=== PATIENT | female | born 1950 | race Caucasian/White ===

== ENCOUNTER 2016-10-19 05:44 | Emergency (ER) | payer MEDICARE, OTHER ==
[~2016-10-19] VITALS: Ht 167.6 cm; Wt 71.5 kg
[~2016-10-19 05:44] MED LIST: AMLO-147 PO; BUPR300T36 PO; CHOL100062 PO; DOCU100C26 PO; ESCI20TA PO; GABA-526 PO; HYDR-3011 PO; KLO5 PO; LOSA25TA5 PO; OMEP20CA16 PO; PRAV40TA76 PO; QUET25TA26 PO
[2016-10-19 05:49] VITALS: Ht 167.6 cm; Wt 71.5 kg
[2016-10-19] MEDS ORDERED: ALBUTEROL 0.5% (NEB) 2.5 MG/0.5 ML AMP INH STA ×2 (06:48→08:52)
[2016-10-19] MEDS ORDERED: IPRATROPIUM (NEB) 0.5 MG/2.5 ML AMP INH STA (06:48)
[2016-10-19] MEDS ORDERED: predniSONE 20 MG TAB PO ONE (07:00)
--- NOTE | 2016-10-19 07:14 | RADRPT ---
PROCEDURE: Chest Radiograph. CLINICAL INDICATION: Cough TECHNIQUE: Single frontal chest radiograph. COMPARISON: Chest radiograph 07/11/2016 FINDINGS: Heart size is within normal limits. Atherosclerotic calcifications are present. There is a calcifi ed granuloma in the left mid lung zone which is stable. The lungs may be mildly hyperinflated. No i nfiltrate or effusion is seen. The bones are intact. IMPRESSION: 1. No evidence of acute cardiopulmonary disease. 2. Atherosclerotic vascular disease. 3. Old granulomatous disease. 4. Mild pulmonary hyperinflation. RPTAT: AA .Mario Gilman MD, MD Date Time Electronically viewed and signed by .Mario Gilman MD, MD on 10/19/2016 07:14 .B/
--- NOTE | 2016-10-19 09:29 | RADRPT ---
AMENDMENT: 10/19/2016 10:25:16 AM Arian Santoro M.D Correction: The study was a bilateral shoulder study not solely a left shoulder study. The correct report should read as follows: Left side: PROCEDURE: XR left Shoulder. CLINICAL INDICATION: Fall. Left shoulder pain from a fall on 10/07/2016. TECHNIQUE: 3 views of the left shoulder are available for review. COMPARISON: 07/11/2016 FINDINGS: The humeral head is elevated and there has been a decrease since the prior exam. There is a mild de crease in the acromiohumeral distance and the findings are suggestive of a rotator cuff rupture. MRI would be confirmatory if clinically indicated. There is chronic greater tuberosity enthesopathy. The bones are osteoporotic. The acromion is curved. No acute fractures seen. There is moderate ar throsis of the AC joint. IMPRESSION: 1. Probable rotator cuff tear. There has been a decrease in the acromiohumeral distance. 2. No acute fracture identified. 3. Osteoporosis. 4. Chronic enthesopathy and a curved acromion likely representing impingement. Right side: PROCEDURE: XR right Shoulder. CLINICAL INDICATION: Fall. Right shoulder pain from a fall on 10/07/2016. TECHNIQUE: 3 views of the right shoulder are available for review. COMPARISON: None available. FINDINGS: There is preservation of the coracohumeral distance. There is a curved acromion. There is chronic enthesopathy of the greater tuberosity. There is no evidence for fracture. The bones are osteopeni c. No evidence for bone destructive or erosive change. No evidence for rib fracture. IMPRESSION: 1. Chronic greater tuberosity enthesopathy and a curved acromion suggesting impingement. 2. No evidence for fracture. 3. Osteopenia. RPTAT: XX PROCEDURE: XR left Shoulder. CLINICAL INDICATION: Fall. Left shoulder pain. TECHNIQUE: 6 views of the left shoulder are available for review. COMPARISON: 07/11/2016 FINDINGS: The humeral head is elevated and there has been a decrease since the prior exam. There is a mild de crease in the acromiohumeral distance and the findings are suggestive of a rotator cuff rupture. Th ere is chronic greater tuberosity enthesopathy. The bones are osteoporotic. The acromion is curved . No acute fractures seen. There is moderate arthrosis of the AC joint. IMPRESSION: 1. Probable rotator cuff tear. There has been a decrease in the acromiohumeral distance. 2. No acute fracture identified. 3. Osteoporosis. 4. Chronic enthesopathy and a curved acromion likely representing impingement. RPTAT: XX .Arian Santoro MD, Date Time Electronically viewed and signed by .Arian Santoro MD, on 10/19/2016 10:25 .T/
[2016-10-19] MEDS ORDERED: ALBU8.5H3 INH (10:48)
[2016-10-19] MEDS ORDERED: OSEL30CA PO (10:48)
[2016-10-19] MEDS ORDERED: MED4DP PO (10:48)
[2016-10-19] MEDS ORDERED: ACET1TAB40 PO (10:48)
--- NOTE | 2016-10-19 11:11 | ERD ---
ER Documentation Chief Complaint Date/Time DATE: 10/19/16 TIME: 11:00 Chief Complaint cough, colds x 10 days HPI 66-year-old female brought in by ambulance with a PMH of T-cell lymphoma, asthma , renal insufficiency complaining of a productive cough that started 4 days ago. States that she started to have a productive cough that started 10 days ago. Reports that she has yellowish thick phlegm. States that she has taken Robitussin and Zithromax without relief of her symptoms prescribed by her PCP. Reports that she also has bilateral shoulder pain. States that this probably occurred after a mechanical fall on October 07, 2016. States that she was seen at [place] and obtained a CT of the brain without contrast for her head injury which was negative for any acute neurological deficits or intracranial bleed. Denies any current headache, nausea, vomiting, abdominal pain, chest pain, shortness, weakness, dizziness, numbness or tingling, dyspnea on exertion, orthopnea. ROS All systems reviewed and are negative except as per history of present illness. Medications Home Meds Active Scripts Oseltamivir Phosphate* (Tamiflu*) 30 Mg Capsule, 30 MG PO BID for 5 Days, CAP Prov:[facility] PINEDA PA-C 10/19/16 Methylprednisolone* (Medrol* DOSE PACK) 4 Mg/Dose-Pack Tab.ds.pk, 4 MG PO . DIRECTED, #1 PACKET Prov:[facility] PINEDA PA-C 10/19/16 Albuterol Sulfate* (Proair HFA*) 8.5 Gm Hfa.aer.ad, 2 PUFF INH Q4, #1 INHALER Prov:[facility] PINEDA PA-C 10/19/16 Acetaminophen with Codeine (Acetaminophen-Cod #3 Tablet) 1 Each Tablet, 1 TAB PO Q6H Y for PAIN, #12 TAB Prov:[facility] PINEDA PA-C 10/19/16 Reported Medications Quetiapine Fumarate* (Seroquel*) 25 Mg Tablet, 25 MG PO DAILY, #30 TAB 07/11/16 Escitalopram Oxalate* (Lexapro*) 20 Mg Tablet, 20 MG PO DAILY, #30 TAB 07/11/16 Bupropion Hcl* (Bupropion XL*) 300 Mg Tab.sr.24h, 300 MG PO DAILY, TAB.SA 07/11/16 Cholecalciferol* (Vitamin D3*) 1,000 Unit Tablet, 2000 UNIT PO DAILY, TAB 07/11/16 Pravastatin Sodium* (Pravastatin Sodium*) 40 Mg Tablet, 40 MG PO HS, TAB 07/11/16 Docusate Sodium* (Doc-Q-Lace*) 100 Mg Capsule, 100 MG PO BID Y for CONSTIPATION , CAP 07/11/16 Omeprazole* (Omeprazole*) 20 Mg Capsule.dr, 20 MG PO DAILY, #30 CAP 07/11/16 Hydroxyzine Hcl* (Hydroxyzine Hcl*) 25 Mg Tablet, 25 MG PO QHS Y for ITCHING, # 30 TAB 07/11/16 Gabapentin* (Gabapentin*) 600 Mg Tablet, 600 MG PO BID, #60 TAB 07/11/16 Clonazepam* (Klonopin*) 0.5 Mg Tab, 0.5 MG PO BID, TAB 07/11/16 Losartan Potassium* (Losartan Potassium*) 25 Mg Tablet, 25 MG PO DAILY, TAB 07/11/16 Amlodipine Besylate* (Amlodipine Besylate*) 10 Mg Tablet, 10 MG PO DAILY, #30 TAB 07/11/16 Allergies Allergies: Coded Allergies: Penicillins (Verified Allergy, Unknown, 07/15/16) clindamycin (Verified Allergy, Unknown, 07/15/16) PMhx/Soc History of Surgery: Yes (nephrectomy,, radiation) Anesthesia Reaction: No Hx Neurological Disorder: No Hx Respiratory Disorders: Yes Hx Cardiac Disorders: Yes Hx Psychiatric Problems: Yes Hx Miscellaneous Medical Probl: Yes (T-cell lymphoma, kidney removal, HTN, asthma, herniated disk, legally blind) Hx Alcohol Use: No Hx Substance Use: No Hx Tobacco Use: No Smoking Status: Never smoker Physical Exam Vitals Vital Signs Date Time Temp Pulse Resp B/P Pulse Ox O2 Delivery O2 Flow Rate FiO2 10/19/16 12:41 98.1 89 19 115/59 98 Room Air 10/19/16 07:24 72 20 97 10/19/16 05:49 97.5 82 20 141/71 99 Physical Exam Const: Xrd-dru-gmputjsis, well-nourished. In no acute distress. Head: Atraumatic, normocephalic Eyes: Normal Conjunctiva without injection. No purulent discharge. PERRL. EOMI ENT: Normal external ear. Ear canal without erythema. Tympanic membrane pearly vaughn without effusion or bulging. Nasal canal clear with normal turbinates. Moist oropharynx without tonsillar exudates. Non-erythematous pharynx. Uvula midline. No drooling. No trismus. Neck: Full range of motion. No meningismus. No cervical lymphadenopathy. Resp: Bilateral expiratory wheezing noted. No rhonchi, rales, or crackles. No accessory muscle use. No retractions. Cardio: Regular rate and rhythm. No murmurs, rubs or gallops. Abd: Soft, non tender, non distended. Normal bowel sounds. No palpable masses. No rebound tenderness. No guarding. Skin: No petechiae or rashes Back: No midline tenderness. No CVA tenderness. Ext: No cyanosis, or edema. Neur: Awake and alert. Psych: Normal Mood and Affect Results 24 hrs Current Medications Medications (Trade) Dose Ordered Sig/Dipika Route PRN Reason Start Time Stop Time Status Last Admin Dose Admin Prednisone (Prednisone) 40 mg ONCE ONCE PO 10/19/16 07:00 10/19/16 07:01 DC 10/19/16 06:54 Albuterol (Proventil 0.5% (Neb)) 5 mg ONCE STAT INH 10/19/16 06:48 10/19/16 06:50 DC 10/19/16 07:23 Ipratropium [place] (Atrovent 0.02% (Neb)) 1 mg ONCE STAT INH 10/19/16 06:48 10/19/16 06:50 DC 10/19/16 07:23 Albuterol (Proventil 0.5% (Neb)) 10 mg ONCE STAT INH 10/19/16 08:52 10/19/16 08:56 DC 10/19/16 09:26 Procedures/MDM 66-year-old female with a past medical history of T-cell lymphoma, asthma, renal insufficiency presents the ED complaining of a productive cough that started 10 days ago. Patient is afebrile and nontoxic-appearing. Patient has normal vital signs. A chest x-ray was ordered to further evaluate patient. 2 breathing treatments were given to patient consisting of 5 mg albuterol, 10 mg albuterol, 1 mg Atrovent which improved patient's shortness of breath and breathing. Patient still has some slight wheezing noted bilaterally after she was reevaluated. Patient is speaking full sentences. Patient does not appear in any respiratory distress. Patient has normal pulse oximetry. PROCEDURE: Chest Radiograph. CLINICAL INDICATION: Cough TECHNIQUE: Single frontal chest radiograph. COMPARISON: Chest radiograph 07/11/2016 FINDINGS: Heart size is within normal limits. Atherosclerotic calcifications are present. There is a calcified granuloma in the left mid lung zone which is stable. The lungs may be mildly hyperinflated. No infiltrate or effusion is seen. The bones are intact. IMPRESSION: 1. No evidence of acute cardiopulmonary disease. 2. Atherosclerotic vascular disease. 3. Old granulomatous disease. 4. Mild pulmonary hyperinflation. AMENDMENT: 10/19/2016 10:25:16 AM Arian Santoro M.D Correction: The study was a bilateral shoulder study not solely a left shoulder study. The correct report should read as follows: Left side: PROCEDURE: XR left Shoulder. CLINICAL INDICATION: Fall. Left shoulder pain from a fall on 10/07/2016. TECHNIQUE: 3 views of the left shoulder are available for review. COMPARISON: 07/11/2016 FINDINGS: The humeral head is elevated and there has been a decrease since the prior exam. There is a mild decrease in the acromiohumeral distance and the findings are suggestive of a rotator cuff rupture. MRI would be confirmatory if clinically indicated. There is chronic greater tuberosity enthesopathy. The bones are osteoporotic. The acromion is curved. No acute fractures seen. There is moderate arthrosis of the AC joint. IMPRESSION: 1. Probable rotator cuff tear. There has been a decrease in the acromiohumeral distance. 2. No acute fracture identified. 3. Osteoporosis. 4. Chronic enthesopathy and a curved acromion likely representing impingement. Right side: PROCEDURE: XR right Shoulder. CLINICAL INDICATION: Fall. Right shoulder pain from a fall on 10/07/2016. TECHNIQUE: 3 views of the right shoulder are available for review. COMPARISON: None available. FINDINGS: There is preservation of the coracohumeral distance. There is a curved acromion. There is chronic enthesopathy of the greater tuberosity. There is no evidence for fracture. The bones are osteopenic. No evidence for bone destructive or erosive change. No evidence for rib fracture. IMPRESSION: 1. Chronic greater tuberosity enthesopathy and a curved acromion suggesting impingement. 2. No evidence for fracture. 3. Osteopenia. EKG reviewed and interpreted by Dr. Metz Rate/Rhythm: [79bpm, Normal Sinus Rhythm] No ectopy, no ST elevations, normal axis. QRS, ST, T-waves: [No changes consistent w/ acute ischemia] Impression: [No evidence of ischemia or arrhythmia] Patient has a left rotator cuff tear. I strictly instructed patient to follow- up with an orthopedic physician for further care and treatment. This could likely be due to patient's medical fall on October 07, 2016. Low suspicion for frozen shoulder, acute myocardial infarction, pneumothorax, pneumonia, cardiac tamponade, pulmonary embolism, AAA, aortic dissection, Boerhaave's syndrome, cardiac dysrhythmias,meningitis, intracranial bleed, seizure, stroke, TIA or other emergent conditions. Patient is placed in a left shoulder sling. Splint Assessment: Neurovascularly intact pre and post sling placement with good fit. Patient's extremity symptoms have stabilized while they have been evaluated in the department and are appropriate for outpatient follow up. No evidence of fractures, dislocations, compartment syndrome, neurologic injury, vascular injury, open joint, open fracture, tendon laceration, septic arthritis, osteomyelitis, DVT, foreign body, or other emergent conditions. I spoke with Elham, pharmacist here at [facility] and dosed Tamiflu based on patient's renal insufficiency. I spoke with Dr. Metz, my supervising physician who agreed with the management and discharge plan. Discharge medications: Tylenol 3, Medrol Dosepak, Tamiflu, Albuterol Follow up with primary care physician in 1-2 days. Instructed patient to return to the ED sooner for any worsening symptoms. Patient's questions were answered. Patient understood and agreed with discharge plan. Patient discharged stable. Departure Diagnosis: Primary Impression: URI (upper respiratory infection) URI type: unspecified URI Qualified Code: J06.9 - Upper respiratory tract infection, unspecified type Additional Impressions: Asthma exacerbation Rotator cuff tear Rotator cuff tear extent: unspecified tear extent Laterality: left Qualified Code: M75.102 - Tear of left rotator cuff, unspecified tear extent Condition: Stable Patient Instructions: Asthma, Acute (Adult), Rotator Cuff Tear, Uri, Viral W/ Wheezing (Adult) Referrals: COMMUNITY CLINICS YOU HAVE RECEIVED A MEDICAL SCREENING EXAM AND THE RESULTS INDICATE THAT YOU DO NOT HAVE A CONDITION THAT REQUIRES URGENT TREATMENT IN THE EMERGENCY DEPARTMENT. FURTHER EVALUATION AND TREATMENT OF YOUR CONDITION CAN WAIT UNTIL YOU ARE SEEN IN YOUR DOCTORS OFFICE WITHIN THE NEXT 1-2 DAYS. IT IS YOUR RESPONSIBILITY TO MAKE AN APPOINTMENT FOR FOLOW-UP CARE. IF YOU HAVE A PRIMARY DOCTOR --you should call your primary doctor and schedule an appointment IF YOU DO NOT HAVE A PRIMARY DOCTOR YOU CAN CALL OUR PHYSICIAN REFERRAL HOTLINE AT IF YOU CAN NOT AFFORD TO SEE A PHYSICIAN YOU CAN CHOSE FROM THE FOLLOWING [facility] [address] [facility] [address] [facility] [address] [facility] [address] [facility] [address] [facility]. [facility] [address] [facility] [facility] YOU HAVE RECEIVED A MEDICAL SCREENING EXAM AND THE RESULTS INDICATE THAT YOU DO NOT HAVE A CONDITION THAT REQUIRES URGENT TREATMENT IN THE EMERGENCY DEPARTMENT. FURTHER EVALUATION AND TREATMENT OF YOUR CONDITION CAN WAIT UNTIL YOU ARE SEEN IN YOUR DOCTORS OFFICE WITHIN THE NEXT 1-2 DAYS. IT IS YOUR RESPONSIBILITY TO MAKE AN APPOINTMENT FOR FOLOW-UP CARE. IF YOU HAVE A PRIMARY DOCTOR --you should call your primary doctor and schedule and appointment IF YOU DO NOT HAVE A PRIMARY DOCTOR YOU CAN CALL OUR PHYSICIAN REFERRAL HOTLINE AT . IF YOU CAN NOT AFFORD TO SEE A PHYSICIAN YOU CAN CHOSE FROM THE FOLLOWING [facility] INSTITUTIONS: [facility] [address] [place] [address] [facility] [address] [place] [address] [facility] [address] [place] [address] [facility] Urgent Care 7 a.m.- 11 p.m. Every Day of the Week NO APPOINTMENT OR AUTHORIZATION NEEDED SO [facility] Hours: Mon-Fri 9:00 AM - 5:00 PM Additional Instructions: FOLLOW UP WITH YOUR PRIMARY CARE PHYSICIAN TOMORROW for your asthma and for a referral for an orthopedic physician follow up for your rotator cuff tear . Return to this facility if you are not improving as expected. MC PINEDA PA-C Oct 19, 2016 11:11
[2016-10-19 12:41] VITALS: BP 115/59; PULSE 89; RESP 19; TEMP 98.1
== END 2016-10-19 12:45 | disposition home or self-care (01) ==
LOC: FTE 05:44
DX: J06.9 Acute upper respiratory infection, unspecified (principal); J45.901 Unspecified asthma with (acute) exacerbation; M75.102 Unspecified rotator cuff tear or rupture of left shoulder, not specified as traumatic; I10 Essential (primary) hypertension
CPT/HCPCS: 71010; 73030; 93005; 94644; 94645; 99284; J7512

== ENCOUNTER 2017-01-09 12:30 | Emergency (ER) | payer MEDICARE, OTHER ==
[~2017-01-09] VITALS: Ht 177.8 cm; Wt 68.2 kg
[~2017-01-09 12:30] MED LIST changes: +ACET1TAB40 PO; +ALBU8.5H3 INH; +CLON-429 PO; -KLO5 PO; +MED4DP PO; +OSEL30CA PO
[2017-01-09 12:33] VITALS: Ht 177.8 cm; Wt 68.2 kg
[2017-01-09] MEDS ORDERED: SOD CHLORIDE 0.9% 500 ML IV STA (17:02)
[2017-01-09] MEDS ORDERED: KETOROLAC 30 MG INJ IV STA (17:02)
[2017-01-09] MEDS ORDERED: QUET25TA26 PO (17:07)
[2017-01-09] MEDS ORDERED: ARIP10TA13 PO (17:08)
--- NOTE | 2017-01-09 17:51 | RADRPT ---
PROCEDURE: XR Chest. CLINICAL INDICATION: Abdomen pain. TECHNIQUE: Single frontal view. COMPARISON: 10/19/2016. FINDINGS: There is a benign calcified granuloma in the left midlung zone laterally. The lungs are otherwise c lear. The heart size is normal. There is calcification in the aorta consistent with atherosclerosis. There is no pleural effusion. There is no pneumothorax. IMPRESSION: 1. Calcified granuloma in the left midlung zone laterally. 2. Otherwise clear lungs. 3. Atherosclerosis. RPTAT: QQ .Blaine Alfred MD, MD Date Time Electronically viewed and signed by .Blaine Alfred MD, MD on 01/09/2017 17:51 .R/
[2017-01-09] MEDS ORDERED: morphine 4 MG/ML VIAL IV STA (17:58)
[2017-01-09 18:15] LABS: ADD SCAN DIFF NO
[2017-01-09 18:18] LABS: BASOPHIL # 0.1 10^3/ul (0.0-0.1); BASOPHILS % 0.9 % (0.0-2.0); EOSINOPHILS # 0.4 10^3/ul (0.0-0.5); EOSINOPHILS % 5.1 % (0.0-7.0); HEMATOCRIT 38.1 % (37.0-47.0); HEMOGLOBIN 12.6 g/dl (12.0-16.0); LYMPHOCYTES # 2.1 10^3/ul (0.8-2.9); LYMPHOCYTES % 25.5 % (15.0-51.0); MEAN CORPUSCULAR HEMOGLOBIN 28.4 pg (29.0-33.0); MEAN CORPUSCULAR HGB CONC 33.1 g/dl (32.0-37.0); MEAN CORPUSCULAR VOLUME 85.8 fl (82.0-101.0); MEAN PLATELET VOLUME 10.4 fl (7.4-10.4); MONOCYTE # 0.6 10^3/ul (0.3-0.9); MONOCYTES % 7.6 % (0.0-11.0); NEUTROPHIL # 4.9 10^3/ul (1.6-7.5); NEUTROPHILS % 59.9 % (39.0-77.0); PLATELET COUNT 393 10^3/UL (140-415); RED BLOOD COUNT 4.44 10^6/ul (4.20-5.40); RED CELL DISTRIBUTION WIDTH 13.3 % (11.5-14.5); WHITE BLOOD COUNT 8.2 10^3/ul (4.8-10.8)
[2017-01-09 18:23] LABS: URINE BILIRUBIN (Dip) NEGATIVE (NEGATIVE); URINE BLOOD (Dip) NEGATIVE (NEGATIVE); URINE COLOR LT. YELLOW (YELLOW); URINE GLUCOSE (Dip) NEGATIVE (NEGATIVE); URINE KETONES (Dip) NEGATIVE (NEGATIVE); URINE LEUKOCYTE ESTERASE (Dip) NEGATIVE (NEGATIVE); URINE NITRITE (Dip) NEGATIVE (NEGATIVE); URINE UROBILINOGEN (Dip) 0.2 E.U./dL (0.1-1.0)
[2017-01-09 18:27] LABS: POTASSIUM 3.9 mmol/L (3.5-5.1)
[2017-01-09 18:30] LABS: CREATININE 1.62 mg/dl (0.44-1.00)
[2017-01-09 18:31] LABS: CALCIUM 9.3 mg/dl (8.4-10.2)
[2017-01-09 18:45] LABS: ADD UMIC NO; URINE TOTAL PROTEIN (Dip) NEGATIVE (NEGATIVE)
--- NOTE | 2017-01-09 19:08 | RADRPT ---
PROCEDURE: CT Neck with contrast. CLINICAL INDICATION: 66-year-old female with cervical spine pain, suspected deep space infection. TECHNIQUE: The study was performed utilizing a multislice multidetector CT scanner. Direct spiral 1 mm axial sections were obtained through the neck with the use of with the use of intravenous contr ast material. 100 cc of Omnipaque 300 was utilized. Coronal and sagittal as well as maximal intens ity projection reformations were obtained. The images were reviewed on a PACS workstation. RADIATION DOSE: CTDIvol: 19.7 mGyDLP: 448.9 mGy-cm COMPARISON: No prior studies are available for comparison. FINDINGS: The nasopharynx, oropharynx and hypopharynx are normal in appearance. There is no prevertebral soft tissue swelling. There is no evidence of significant pharyngeal or parapharyngeal edema. There is no tongue base mass. The larynx is normal in appearance. The parotid, submandibular and thyroid g lands are normal in appearance. There are multiple small lymph nodes in the bilateral cervical teo n without evidence of enlarged cervical lymph node. The vascular structures are normal. The parana karon sinuses and orbits are normal. Limited visualization of the intracranial contents is unremarkab le. There are moderate to severe degenerative changes of the cervical spine. The lung apices are n ormal in appearance. IMPRESSION: 1. Multiple small lymph nodes in the bilateral cervical chains without evidence of lymphadenopathy. 2. Otherwise, unremarkable CT of the neck soft tissues. No mass lesion, lymphadenopathy or abnorma l fluid collection. No evidence of prevertebral fluid collection to suggest retropharyngeal abscess. RPTAT: HGAS .Braden Conrad MD, Date Time Electronically viewed and signed by .Braden Conrad MD, on 01/09/2017 19:08 .S/
--- NOTE | 2017-01-09 21:09 | ERD ---
ER Documentation Chief Complaint Date/Time DATE: 01/09/17 TIME: 21:02 Chief Complaint neck swelling hx of lymphode CA HPI 66-year-old female with a history of cutaneous T-cell lymphoma undergoing radiation treatment presenting with anterior neck pain and sore throat for about 1 week. She saw her primary care doctor a few days ago and she was diagnosed with likely a viral pharyngitis. She was given a prescription for lidocaine to take orally, however she did not fill it until today. She states that she had a runny nose associated with her symptoms and the fever initially, which have now resolved. She is concerned as she has this diagnosis of lymphoma and is worried that she has something serious going on. She has some pain with swallowing but denies any difficulty eating, drinking, speaking. No nausea, vomiting, chest pain, shortness of breath. She does have a mild cough with no phlegm production. ROS All systems reviewed and are negative except as per history of present illness. Medications Home Meds Active Scripts Albuterol Sulfate* (Proair HFA*) 8.5 Gm Hfa.aer.ad, 2 PUFF INH Q4, #1 INHALER Prov:[facility] PINEDA PA-C 10/19/16 Acetaminophen with Codeine (Acetaminophen-Cod #3 Tablet) 1 Each Tablet, 1 TAB PO Q6H Y for PAIN, #12 TAB Prov:[facility] PINEDA PA-C 10/19/16 Reported Medications Aripiprazole* (Abilify*) 10 Mg Tablet, 10 MG PO DAILY, #30 TAB 01/09/17 Quetiapine Fumarate* (Seroquel*) 25 Mg Tablet, 25 MG PO BID, #60 TAB 01/09/17 Escitalopram Oxalate* (Lexapro*) 20 Mg Tablet, 20 MG PO DAILY, #30 TAB 07/11/16 Bupropion Hcl* (Bupropion XL*) 300 Mg Tab.sr.24h, 300 MG PO DAILY, TAB.SA 07/11/16 Cholecalciferol* (Vitamin D3*) 1,000 Unit Tablet, 2000 UNIT PO DAILY, TAB 07/11/16 Pravastatin Sodium* (Pravastatin Sodium*) 40 Mg Tablet, 40 MG PO HS, TAB 07/11/16 Omeprazole* (Omeprazole*) 20 Mg Capsule.dr, 20 MG PO DAILY, #30 CAP 07/11/16 Hydroxyzine Hcl* (Hydroxyzine Hcl*) 25 Mg Tablet, 25 MG PO QHS Y for ITCHING, # 30 TAB 07/11/16 Gabapentin* (Gabapentin*) 600 Mg Tablet, 600 MG PO BID, #60 TAB 07/11/16 Clonazepam* (Klonopin*) 0.5 Mg Tab, 0.5 MG PO BID, TAB 07/11/16 Losartan Potassium* (Losartan Potassium*) 25 Mg Tablet, 25 MG PO DAILY, TAB 07/11/16 Amlodipine Besylate* (Amlodipine Besylate*) 10 Mg Tablet, 10 MG PO DAILY, #30 TAB 07/11/16 Discontinued Reported Medications Quetiapine Fumarate* (Seroquel*) 25 Mg Tablet, 25 MG PO DAILY, #30 TAB 07/11/16 Docusate Sodium* (Doc-Q-Lace*) 100 Mg Capsule, 100 MG PO BID Y for CONSTIPATION , CAP 07/11/16 Discontinued Scripts Oseltamivir Phosphate* (Tamiflu*) 30 Mg Capsule, 30 MG PO BID for 5 Days, CAP Prov:[facility] PINEDA PA-C 10/19/16 Methylprednisolone* (Medrol* DOSE PACK) 4 Mg/Dose-Pack Tab.ds.pk, 4 MG PO . DIRECTED, #1 PACKET Prov:[facility] PINEDA PA-C 10/19/16 Allergies Allergies: Coded Allergies: Penicillins (Verified Allergy, Unknown, 01/09/17) clindamycin (Verified Allergy, Unknown, 01/09/17) PMhx/Soc History of Surgery: Yes (nephrectomy,, radiation) Anesthesia Reaction: No Hx Neurological Disorder: No Hx Respiratory Disorders: Yes Hx Cardiac Disorders: Yes Hx Psychiatric Problems: Yes Hx Miscellaneous Medical Probl: Yes (T-cell lymphoma, kidney removal, HTN, asthma, herniated disk, legally blind) Hx Alcohol Use: No Hx Substance Use: No Hx Tobacco Use: No Smoking Status: Never smoker FmHx Family History: No diabetes Physical Exam Vitals Vital Signs Date Time Temp Pulse Resp B/P Pulse Ox O2 Delivery O2 Flow Rate FiO2 01/09/17 12:33 98.6 72 20 145/71 99 Physical Exam Const: Well-appearing, no distress, nontoxic Head: Atraumatic Eyes: Normal Conjunctiva ENT: Normal External Ears, Nose and Mouth. No anterior or posterior cervical masses. Normal phonation. No drooling, trismus. Posterior oropharynx normal without exudates or swelling. Neck: Full range of motion. No meningismus. No cervical or supraclavicular lymphadenopathy Resp: Clear to auscultation bilaterally Cardio: Regular rate and rhythm, no murmurs Abd: Soft, non tender, non distended. Normal bowel sounds Skin: No petechiae or rashes Back: No midline or flank tenderness Ext: No cyanosis, or edema Neur: Awake and alert and oriented 3, cranial nerves intact, strength and sensations intact in all 4 extremities Psych: Anxious mood and Affect Result Diagram: 01/09/17174901/09/171749 Results 24 hrs Laboratory Tests Test 01/09/17 17:50 White Blood Count 8.210^3/ul Red Blood Count 4.4410^6/ul Hemoglobin 12.6g/dl Hematocrit 38.1% Mean Corpuscular Volume 85.8fl Mean Corpuscular Hemoglobin 28.4pg Mean Corpuscular Hemoglobin Concent 33.1g/dl Red Cell Distribution Width 13.3% Platelet Count 32023^3/UL Mean Platelet Volume 10.4fl Neutrophils % 59.9% Lymphocytes % 25.5% Monocytes % 7.6% Eosinophils % 5.1% Basophils % 0.9% Nucleated Red Blood Cells % 0.0/100WBC Neutrophils # 4.910^3/ul Lymphocytes # 2.110^3/ul Monocytes # 0.610^3/ul Eosinophils # 0.410^3/ul Basophils # 0.110^3/ul Nucleated Red Blood Cells # 0.010^3/ul Urine Color LT. YELLOW Urine Clarity CLEAR Urine pH 5.5 Urine Specific Mayer 1.025 Urine Ketones NEGATIVE Urine Nitrite NEGATIVE Urine Bilirubin NEGATIVE Urine Urobilinogen 0.2 E.U./dL Urine Leukocyte Esterase NEGATIVE Urine Hemoglobin NEGATIVE Urine Glucose NEGATIVE% Urine Total Protein NEGATIVE Sodium Level 145mmol/L Potassium Level 3.9mmol/L Chloride Level 105mmol/L Carbon Dioxide Level 27mmol/L Anion Gap 17 Blood Urea Nitrogen 17mg/dl Creatinine 1.62mg/dl Glucose Level 87mg/dl Calcium Level 9.3mg/dl Current Medications Medications (Trade) Dose Ordered Sig/Dipika Route PRN Reason Start Time Stop Time Status Last Admin Dose Admin Sodium Chloride (NS) 500 ml @ 500 mls/hr Q1H STAT IV 01/09/17 17:02 01/09/17 18:01 DC 01/09/17 17:02 Ketorolac Tromethamine (Toradol) 30 mg ONCE STAT IV 01/09/17 17:02 01/09/17 17:59 DC Morphine Sulfate (morphine) 4 mg ONCE STAT IV 01/09/17 17:58 01/09/17 18:00 DC 01/09/17 18:07 Procedures/MDM EMERGENT LABS AND DIAGNOSTIC STUDIES: Lab Results above were reviewed and interpreted by me. Impaired renal function noted, no other abnormalities 12-lead EKG was interpreted by Blaine Hwang MD: Normal Sinus Rhythm with ventricular rate of 81 beats per minute Left bundle branch block No acute ST or T wave changes suggestive of acute ischemia or STEMI. Radiology Results as interpreted by Radiology below were reviewed by Mumtaz Hwang MD: Chest x-ray: IMPRESSION: 1. Calcified granuloma in the left midlung zone laterally. 2. Otherwise clear lungs. 3. Atherosclerosis. RPTAT: QQ .Blaine Alfred MD, MD Date Time Electronically viewed and signed by .Blaine Alfred MD, MD on 01/09/2017 17:51 CT neck soft tissue without contrast: IMPRESSION: 1. Multiple small lymph nodes in the bilateral cervical chains without evidence of lymphadenopathy. 2. Otherwise, unremarkable CT of the neck soft tissues. No mass lesion, lymphadenopathy or abnormal fluid collection. No evidence of prevertebral fluid collection to suggest retropharyngeal abscess. RPTAT: HGAS .Braden Conrad MD, Date Time Electronically viewed and signed by .Braden Conrad MD, on 01/09/2017 19: 08 Initial Nursing notes reviewed. Previous Medical Records requested via the Electronic Health Record. EMERGENCY DEPARTMENT COURSE / MEDICAL DECISION MAKING: Patient is presenting with anterior neck pain and sore throat. She is afebrile with stable vitals. There are no abnormalities on my exam that are concerning. Labs were done and did not show any acute abnormalities. I do not suspect epiglottitis or Javi's angina. The CT of her neck was done to evaluate for any evidence of deep space infection and did not show any acute abnormalities. I discussed these results with the patient and reassured her. She was given morphine for her pain here. I advised she continue her Tylenol at home and follow-up with her primary care doctor in the next 2 days. It is possible that her symptoms are secondary to a viral infection as it has only been 7 days. If her symptoms continue or worsen, she will need to return to the ER. Patient's blood pressure was elevated (>120/80) but appears stable without evidence of hypertensive emergency or urgency. The patient was counseled about the risks of hypertension and urged to pursue outpatient monitoring and therapy within a week with their primary care physician. Departure Diagnosis: Primary Impression: Anterior neck pain Additional Impression: Sore throat Condition: Stable Patient Instructions: Self-Care for Sore Throats Additional Instructions: Follow-up with your primary care doctor in the next 1-2 days. Return for any worsening symptoms. Continue taking Tylenol for your pain. RANDA HWANG MD Jan 09, 2017 21:09
[2017-01-09 21:16] VITALS: BP 145/71; RESP 20; TEMP 98.6
== END 2017-01-09 21:16 | disposition home or self-care (01) ==
LOC: E/R 12:30
DX: M54.2 Cervicalgia (principal); R40.2252 Coma scale, best verbal response, oriented, at arrival to emergency department; I10 Essential (primary) hypertension; J45.909 Unspecified asthma, uncomplicated; R40.2142 Coma scale, eyes open, spontaneous, at arrival to emergency department; R40.2362 Coma scale, best motor response, obeys commands, at arrival to emergency department; Z80.8 Family history of malignant neoplasm of other organs or systems
CPT/HCPCS: 70490; 71010; 80048; 81003; 85025; J2270; J7040; 36415; 96374; J1885

== ENCOUNTER 2017-05-20 15:38 | Emergency (ER) | payer MEDICARE, OTHER ==
[~2017-05-20] VITALS: Ht 180.3 cm; Wt 65.9 kg
[~2017-05-20 15:38] MED LIST changes: +ARIP10TA13 PO; -DOCU100C26 PO; -MED4DP PO; -OSEL30CA PO
[2017-05-20 15:43] VITALS: Ht 180.3 cm; Wt 65.9 kg
[2017-05-20] MEDS ORDERED: SOD CHLORIDE 0.9% 1,000 ML IV STA ×3 (15:44→21:00)
[2017-05-20] MEDS ORDERED: ONDANSETRON 4 MG INJ IV STA (15:44)
[2017-05-20] MEDS ORDERED: morphine 4 MG/ML VIAL IV STA (15:44)
[2017-05-20 16:12] LABS: BASOPHILS % 0.7 % (0.0-2.0); EOSINOPHILS # 0.3 10^3/ul (0.0-0.5); EOSINOPHILS % 4.3 % (0.0-7.0); HEMATOCRIT 35.3 % (37.0-47.0); HEMOGLOBIN 11.8 g/dl (12.0-16.0); LYMPHOCYTES # 2.3 10^3/ul (0.8-2.9); LYMPHOCYTES % 37.8 % (15.0-51.0); MEAN CORPUSCULAR HEMOGLOBIN 30.1 pg (29.0-33.0); MEAN CORPUSCULAR HGB CONC 33.4 g/dl (32.0-37.0); MEAN CORPUSCULAR VOLUME 90.1 fl (82.0-101.0); MEAN PLATELET VOLUME 10.5 fl (7.4-10.4); MONOCYTE # 0.5 10^3/ul (0.3-0.9); NEUTROPHILS % 48.9 % (39.0-77.0); PLATELET COUNT 321 10^3/UL (140-415); RED BLOOD COUNT 3.92 10^6/ul (4.20-5.40); RED CELL DISTRIBUTION WIDTH 13.1 % (11.5-14.5); WHITE BLOOD COUNT 6.1 10^3/ul (4.8-10.8)
[2017-05-20] MEDS ORDERED: TRAZ50TA18 PO (16:12)
[2017-05-20 16:34] LABS: ALANINE AMINOTRANSFERASE 25 IU/L (13-69); ALBUMIN 4.3 g/dl (3.3-4.9); ALBUMIN/GLOBULIN RATIO 1.48; ALKALINE PHOSPHATASE 105 IU/L (42-121); AMYLASE 94 U/L (11-123); ANION GAP 18 (8-16); ASPARTATE AMINO TRANSFERASE 14 IU/L (15-46); BILIRUBIN,INDIRECT 0.2 mg/dl (0-1.1); BILIRUBIN,TOTAL 0.2 mg/dl (0.2-1.3); BLOOD UREA NITROGEN 24 mg/dl (7-20); CALCIUM 9.2 mg/dl (8.4-10.2); CARBON DIOXIDE 23 mmol/L (21-31); CHLORIDE 105 mmol/L (97-110); CREATINE KINASE 53 IU/L (23-200); CREATININE 2.09 mg/dl (0.44-1.00); GLUCOSE 90 mg/dl (70-220); INR 0.95; POTASSIUM 4.3 mmol/L (3.5-5.1); PROTIME 12.7 Sec (12.2-14.2); SODIUM 142 mmol/L (135-144); TOTAL PROTEIN 7.2 g/dl (6.1-8.1)
[2017-05-20 16:35] LABS: PARTIAL THROMBOPLASTIN TIME 33.9 Sec (25.0-35.0)
[2017-05-20 16:51] LABS: CK-MB < 0.22 ng/ml (0.0-2.4); TROPONIN-I < 0.012 ng/ml (0.00-0.12)
--- NOTE | 2017-05-20 17:22 | ERD ---
ER Documentation Chief Complaint Date/Time DATE: 05/20/17 TIME: 17:16 Chief Complaint WALKING IN THE HEAT 3 MILES AND OVERHEATED. CANCER ON RADIATION HPI This is a 67-year-old female with a known history of T-cell lymphoma currently undergoing radiation. Her last dose of radiation was 5 days prior to arrival. The patient indicated she was told by her oncologist and debone supervisor who follow her at [facility] she is to avoid prolonged time in the heat. The patient indicated she had to pay a bill and therefore walked in the ambient temperature of roughly over 100 for 3 miles. She started to feel very weak and dizzy lightheaded and as though she was going to pass out however there was no complete syncope episode. She denied any shortness of breath at rest or exertion. She did not have any water. A bystander called EMS and when they arrived they stated the patient was very warm to the touch but was answering all questions appropriately. The patient denies a headache or changes in vision. She denies any chest pain or pressure that radiates the neck arm back or jaw ROS All systems reviewed and are negative except as per history of present illness. Medications Home Meds Reported Medications Trazodone Hcl* (Desyrel*) 50 Mg Tab, 50 MG PO QHS, #30 TAB 05/20/17 Bupropion Hcl* (Bupropion XL*) 300 Mg Tab.sr.24h, 300 MG PO DAILY, TAB.SA 07/11/16 Cholecalciferol* (Vitamin D3*) 1,000 Unit Tablet, 2000 UNIT PO DAILY, TAB 07/11/16 Pravastatin Sodium* (Pravastatin Sodium*) 40 Mg Tablet, 40 MG PO HS, TAB 07/11/16 Gabapentin* (Gabapentin*) 600 Mg Tablet, 600 MG PO BID, #60 TAB 07/11/16 Clonazepam* (Klonopin*) 0.5 Mg Tab, 0.5 MG PO BID, TAB 07/11/16 Losartan Potassium* (Losartan Potassium*) 25 Mg Tablet, 25 MG PO DAILY, TAB 07/11/16 Amlodipine Besylate* (Amlodipine Besylate*) 10 Mg Tablet, 10 MG PO DAILY, #30 TAB 07/11/16 Discontinued Reported Medications Aripiprazole* (Abilify*) 10 Mg Tablet, 10 MG PO DAILY, #30 TAB 01/09/17 Quetiapine Fumarate* (Seroquel*) 25 Mg Tablet, 25 MG PO BID, #60 TAB 01/09/17 Escitalopram Oxalate* (Lexapro*) 20 Mg Tablet, 20 MG PO DAILY, #30 TAB 07/11/16 Omeprazole* (Omeprazole*) 20 Mg Capsule.dr, 20 MG PO DAILY, #30 CAP 07/11/16 Hydroxyzine Hcl* (Hydroxyzine Hcl*) 25 Mg Tablet, 25 MG PO QHS Y for ITCHING, # 30 TAB 07/11/16 Discontinued Scripts Albuterol Sulfate* (Proair HFA*) 8.5 Gm Hfa.aer.ad, 2 PUFF INH Q4, #1 INHALER Prov:[facility] PINEDA PA-C 10/19/16 Acetaminophen with Codeine (Acetaminophen-Cod #3 Tablet) 1 Each Tablet, 1 TAB PO Q6H Y for PAIN, #12 TAB Prov:[facility] PINEDA PA-C 10/19/16 Allergies Allergies: Coded Allergies: Penicillins (Verified Allergy, Unknown, 05/20/17) clindamycin (Verified Allergy, Unknown, 05/20/17) PMhx/Soc History of Surgery: Yes (nephrectomy,, radiation, TONSILECTOMY ) Anesthesia Reaction: No Hx Neurological Disorder: No Hx Respiratory Disorders: Yes Hx Cardiac Disorders: Yes (HTN, CHOLESTEROL ) Hx Psychiatric Problems: Yes Hx Miscellaneous Medical Probl: Yes (T-cell lymphoma, kidney removal, HTN, asthma, herniated disk, legally blind) Hx Alcohol Use: No Hx Substance Use: No Hx Tobacco Use: No Smoking Status: Never smoker Physical Exam Vitals Vital Signs Date Time Temp Pulse Resp B/P Pulse Ox O2 Delivery O2 Flow Rate FiO2 05/20/17 16:07 63 18 122/64 97 Room Air 05/20/17 15:43 98.6 68 22 116/80 98 Physical Exam Constitutional:Well-developed. Well-nourished. HEENT:Normocephalic. Atraumatic.Pupils were equal round reactive to light. Dry mucous membranes.No tonsillar exudates. Neck: No nuchal rigidity. No lymphadenopathy. No posterior cervical spine tenderness or step-offs. Respiratory: Not using accessory muscles of respiration.Lungs were clear to auscultation bilaterally. No rhonchi. No rales. No wheezing. Cardiovascular: Regular rate regular rhythm.No murmurs. No rubs were appreciated.S1, S2 normal. Distal pulses are palpable 2+ bilaterally. GI: Abdomen was soft. Nontender. Non Distended. No pulsatile abdominal masses or bruits. No rebound. No guarding. Bowel sounds were present and normal. Muscle skeletal: Full range of motion of both the upper and lower extremities bilaterally.Normal muscle tone.No assymetrical calf tenderness or swelling. Skin: Warm to the touch with no diffuse erythremia no petechia, no purpura. No lesions on the palms or the soles of the feet. No maculopapular rash. NEURO: Patient was alert, awake, orientated x3.No facial droop. Gait observed and normal with no ataxia.Speech had regular rate and rhythm. No focal neurological deficits. Result Diagram: 05/20/17 1550 05/20/17 1550 Results 24 hrs Laboratory Tests Test 05/20/17 15:50 White Blood Count 6.110^3/ul Red Blood Count 3.9210^6/ul Hemoglobin 11.8g/dl Hematocrit 35.3% Mean Corpuscular Volume 90.1fl Mean Corpuscular Hemoglobin 30.1pg Mean Corpuscular Hemoglobin Concent 33.4g/dl Red Cell Distribution Width 13.1% Platelet Count 63468^3/UL Mean Platelet Volume 10.5fl Neutrophils % 48.9% Lymphocytes % 37.8% Monocytes % 8.0% Eosinophils % 4.3% Basophils % 0.7% Nucleated Red Blood Cells % 0.0/100WBC Neutrophils # 3.010^3/ul Lymphocytes # 2.310^3/ul Monocytes # 0.510^3/ul Eosinophils # 0.310^3/ul Basophils # 0.010^3/ul Nucleated Red Blood Cells # 0.010^3/ul Prothrombin Time 12.7Sec Prothrombin Time Ratio 1.0 INR International Normalized Ratio 0.95 Activated Partial Thromboplast Time 33.9Sec Sodium Level 142mmol/L Potassium Level 4.3mmol/L Chloride Level 105mmol/L Carbon Dioxide Level 23mmol/L Anion Gap 18 Blood Urea Nitrogen 24mg/dl Creatinine 2.09mg/dl Glucose Level 90mg/dl Calcium Level 9.2mg/dl Total Bilirubin 0.2mg/dl Direct Bilirubin 0.00mg/dl Indirect Bilirubin 0.2mg/dl Aspartate Amino Transf (AST/SGOT) 14IU/L Alanine Aminotransferase (ALT/SGPT) 25IU/L Alkaline Phosphatase 105IU/L Creatine Kinase 53IU/L Creatine Kinase Index 0.4 Creatinine Kinase MB (Mass) < 0.22ng/ml Troponin I < 0.012ng/ml Total Protein 7.2g/dl Albumin 4.3g/dl Globulin 2.90g/dl Albumin/Globulin Ratio 1.48 Amylase Level 94U/L Lipase 142U/L Current Medications Medications (Trade) Dose Ordered Sig/Dipika Route PRN Reason Start Time Stop Time Status Last Admin Dose Admin Sodium Chloride (NS) 1,000 ml @ 1,000 mls/hr Q1H STAT IV 05/20/17 15:44 05/20/17 16:43 DC 05/20/17 16:18 Morphine Sulfate (morphine) 4 mg ONCE STAT IV 05/20/17 15:44 05/20/17 15:46 DC 05/20/17 16:18 Ondansetron HCl 4 mg 4 mg ONCE STAT IV 05/20/17 15:44 05/20/17 15:46 DC 05/20/17 16:18 Sodium Chloride (NS) 1,000 ml @ 1,000 mls/hr Q1H STAT IV 05/20/17 16:51 05/20/17 17:50 Procedures/MDM This patient presented to the emergency department with concerns of heat exhaustion. The patient did not have any physical exam findings to suggest heat syncope or heatstroke. There is no evidence of rhabdomyolysis. The patient had prerenal azotemia and received a total of 2 L boluses of normal saline. 12 Lead EKG tracing ordered and reviewed by myself showed: Normal sinus rhythm of 65 bpm and no arrhythmia. WI interval normal. QRS duration normal. No ST segment elevation No ST segment depression. No changes consistent with acute ischemia. After receiving above treatment the patient states she had significant improvement of her symptoms and felt comfortable being discharged home. She was able to tolerate oral intake. The patient was discharged home in fair condition. They were instructed to return to the emergency department at any time if there was any worsening of their condition. The patient stated they would follow up with their PCP in the next 24-48 hours to initiate a suitable medication regimen under the care of their PCP as well as to allow their PCP to monitor any drug reactions. The patient was discharged home with prescriptions after they gave informed consent to the new medication. They were also fully informed by myself on the adverse effects and adverse drug interactions in order to provide adequate safeguards to prevent possible adverse reactions to medications. Departure Diagnosis: Primary Impression: Heat exhaustion Encounter type: initial encounter Qualified Code: T67.5XXA - Heat exhaustion , initial encounter Condition: SAMEER Acosta May 20, 2017 17:22
[2017-05-20 18:23] LABS: ADD UMIC NO; UR ASCORBIC ACID NEGATIVE (NEGATIVE); UR BILIRUBIN (Dip) NEGATIVE (NEGATIVE); UR BLOOD (Dip) NEGATIVE (NEGATIVE); UR CLARITY CLEAR (CLEAR); UR COLOR YELLOW (YELLOW); UR GLUCOSE (Dip) NEGATIVE (NEGATIVE); UR KETONES (Dip) NEGATIVE (NEGATIVE); UR LEUKOCYTE ESTERASE (Dip) NEGATIVE Leu/ul (NEGATIVE); UR NITRITE (Dip) NEGATIVE (NEGATIVE); UR SPECIFIC GRAVITY (Dip) 1.012 (1.003-1.030); UR TOTAL PROTEIN (Dip) NEGATIVE (NEGATIVE); UR UROBILINOGEN (Dip) NEGATIVE (NEGATIVE)
--- NOTE | 2017-05-20 21:28 | RADRPT ---
PROCEDURE: XR Chest. CLINICAL INDICATION: Chest pain. TECHNIQUE: Single frontal view. COMPARISON: 01/09/2017. FINDINGS: There is a calcified granuloma in the left midlung zone laterally, benign. The lungs are otherwise clear. The heart size is normal. There is calcification in the aorta consistent with atherosclerosis. There is no pleural effusion. There is no pneumothorax. IMPRESSION: 1. Calcified granuloma in the left midlung zone laterally. 2. Otherwise clear lungs. 3. Atherosclerosis. 4. No change from 01/09/2017. RPTAT: QQ .Blaine Alfred MD, Date Time Electronically viewed and signed by .Blaine Alfred MD, on 05/20/2017 21:28 .R/
[2017-05-20] MEDS ORDERED: LORAZEPAM 2 MG INJ IV ONE (21:30)
[2017-05-21 00:28] VITALS: BP 122/58; PULSE 69; RESP 19
== END 2017-05-21 00:36 | disposition home or self-care (01) ==
LOC: E/R 15:38
DX: T67.5XXA Heat exhaustion, unspecified, initial encounter (principal); I10 Essential (primary) hypertension; J45.909 Unspecified asthma, uncomplicated; R07.9 Chest pain, unspecified
CPT/HCPCS: 36415; 71010; 80053; 81003; 82150; 82550; 82553; 83690; 84484; 85025; 85610; 85730; 93005; 96361; 96374; 96375; 99285; J2060; J2270; J2405; J7030